=== PATIENT | female | born 1965 | race Caucasian/White ===

== ENCOUNTER → 2018-06-05 10:11 | Day surgery (SDC) | payer BC, OTHER ==
--- NOTE | 2018-06-05 03:39 | HP ---
CC: PCP, Jose Ayala MD * HISTORY AND PHYSICAL: DATE OF ADMISSION: 06/05/18 DATE OF SERVICE: 05/24/18 CHIEF COMPLAINT: Right shoulder. HISTORY OF PRESENT ILLNESS: Briefly, Kristy Montez follows up for right shoulder. She states she needs surgical treatment now. She has calcific tendonitis with impingement that is refractory to conservative management. She has failed 2 injections. She has had multiple bouts of physical therapy. The pain is about 5/10. She denies numbness, tingling, fevers, or chills. She also has left shoulder issues, but she would like her right shoulder addressed. PAST MEDICAL HISTORY: Recent diagnosis of diabetes. PAST SURGICAL HISTORY: Cholecystectomy in 2016, tubal , status post oophorectomy. MEDICATIONS: Include: 1. Multivitamin. 2. Metformin. 3. Ibuprofen. ALLERGIES: None. FAMILY HISTORY: Significant for diabetes, heart disease, high blood pressure. SOCIAL HISTORY: She lives with her spouse. 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 She is right hand dominant. She denies tobacco and drinks alcohol socially. REVIEW OF SYSTEMS: A 14-point review of systems reviewed with the patient, significant for the above complaint and recent diagnosis of diabetes, otherwise remainder of the systems is negative. PHYSICAL EXAMINATION GENERAL: She is in no acute distress. She is well developed and well nourished. She is alert and oriented x3. She has pleasant mood and normal affect. Good balance and coordination of the extremities. HEENT: EOMI. CHEST: Clear to auscultation. HEART: Regular rate and rhythm. ABDOMEN: Soft, nontender. EXTREMITIES: Examination of the right shoulder demonstrates skin is intact. There is no erythema or warmth. She is tender about the subacromial space. She has full range of motion with 5/5 strength. Positive impingement. She is sensate to light touch grossly distally with brisk cap refill. ASSESSMENT AND PLAN: She has right shoulder calcific tendonitis with impingement. At this point, we talked about options. She is not a candidate for any further injections, and I talked about right shoulder arthroscopy with decompression and debridement. We talked about the recover time. We talked about possible surgery to the biceps if it looks damaged, although I do not think based on her MRI. Risks and benefits were discussed at length to include , but not limited to, bleeding; infection; damage to the nerves, vessels, or surrounding structures; wound nonhealing; persistent pain; need for further surgery; scarring; stiffness; incomplete relief of symptoms; and risk of anesthesia. I will see her back 10 to 14 days postop. [id number]/[facility] #: [id number] MTDD
[~2018-06-05 10:11] MED LIST: Atropine 1MG/ML INJ* 1 ML VIAL ONE; Buffered Lidocaine 0.9% SYRIN* 5 ML/SYR SYRINGE INTRADERM ONE; Buffered Lidocaine 0.9% SYRIN* 5 ML/SYR SYRINGE ONE; Bupivacaine 0.5% PF 10 ML VIAL INJ ONE; Dexamethasone IV* 4 MG/ML 1 ML (4 MG) IV SLOW PU ONE; Dexamethasone IV* 4 MG/ML 1 ML (4 MG) ONE; DiMENhydriNATE IV* 50 MG/ML VIAL IV PUSH PRN; Famotidine IV* 10 MG/ML 2 ML (20 mg) IV ONE; Famotidine IV* 10 MG/ML 2 ML (20 mg) ONE; Glycopyrrolate IV* 0.2 MG/ML 1 ML VIAL ONE; HYDROmorphone INJ* 0.5 MG/0.5 ML SYRINGE IV PRN; Midazolam* 1 MG/ML 5 ML VIAL (5 MG) ONE; Naloxone* 0.4 MG/ML 1 ML VIAL IV PRN; Ondansetron INJ* 2 MG/ML VIAL IV PRN; Ondansetron INJ* 2 MG/ML VIAL ONE; Propofol* 10 MG/ML 20 ML BTL IV PUSH ONE; ROPIVACAINE 5 MG/ML 30 ML BTL (0.5%) ONE; ceFAZolin 2 GM PREMIX (*) 2 GM/50 ML BAG IVPB ONE; fentaNYL* 50 MCG/ML 2 ML VIAL (100 MCG VIAL) IV PRN; fentaNYL* 50 MCG/ML 2 ML VIAL (100 MCG VIAL) ONE; methylPREDNISolone ACETATE 80* 80 MG/ML 1 ML VIAL ONE; oxyCODONE/Acetamin 5/325 MG* TAB PO PRN
[2018-06-05 15:08] VITALS: BP 109/72
--- NOTE | 2018-06-06 10:58 | OP ---
DICTATION ENDED ABRUPTLY - PLEASE COMPLETE THIS DICTATION DATE OF OPERATION: 06/05/18 - [facility] DATE OF : 63 SURGEON: Chun Odonnell MD RETAIL AREA MANAGER: ROSEANN Aburto. An broker assistant was needed for this case to help with positioning, retraction, and was utilized throughout all portions of the case. PRE-OP DIAGNOSIS: Right shoulder calcific tendinitis. POST-OP DIAGNOSIS: Right shoulder calcific tendinitis. OPERATIVE PROCEDURE: Right shoulder limited glenohumeral debridement with subacromial decompression, acromioplasty, debridement of calcific lesion, and subacromial injection with 80 mg of Depo-Medrol. INDICATIONS: Kristy Montez is a 52-year-old female who has struggled with calcific tendinitis and impingement from a work-related injury for over a year. She has failed conservative management. She has had a maximum number of injections. She has elected to proceed with surgical treatment. Risks and benefits of surgery were discussed at length including, but not limited to, bleeding; infection; damage to nerves, vessels; surrounding structures; wound nonhealing; persistent pain; need for further surgery; scarring; stiffness; incomplete relief of symptoms; risk of anesthesia. COMPLICATIONS: None. ESTIMATED BLOOD LOSS: Minimal. IMPLANTS: None. DESCRIPTION OF PROCEDURE: The patient was greeted in the preoperative area by the attending surgeon. Correct extremity was marked and consent was confirmed. The patient was brought back to the operating suite, where she was placed in supine position on the operating table. She first underwent interscalene nerve block by anesthesiologist in the preanesthesia area. She then was brought back to the operating suite where she was placed in the supine position on the operating table. She then underwent general anesthesia and endotracheal intubation. INCOMPLETE DICTATION [id number]/[facility] #: [id number] [facility]
== END | disposition home or self-care (01) ==
LOC: OR 10:11
PROVIDERS: ATTEND Orthopaedic Surgery
DX: M75.31 Calcific tendinitis of right shoulder (principal); M75.41 Impingement syndrome of right shoulder; E11.9 Type 2 diabetes mellitus without complications; Z79.84 Long term (current) use of oral hypoglycemic drugs; E66.9 Obesity, unspecified; G47.33 Obstructive sleep apnea (adult) (pediatric); G89.18 Other acute postprocedural pain
CPT/HCPCS: J0461; J0690; J1040; J1100; J2250; J2405; J2704; J2795; J3010

== ENCOUNTER 2018-07-31 09:01 | Inpatient (IN) | payer BC, OTHER ==
[~2018-07-31 09:01] MED LIST changes: -Atropine 1MG/ML INJ* 1 ML VIAL ONE; -Buffered Lidocaine 0.9% SYRIN* 5 ML/SYR SYRINGE ONE; -Bupivacaine 0.5% PF 10 ML VIAL INJ ONE; -Dexamethasone IV* 4 MG/ML 1 ML (4 MG) IV SLOW PU ONE; -Dexamethasone IV* 4 MG/ML 1 ML (4 MG) ONE; -DiMENhydriNATE IV* 50 MG/ML VIAL IV PUSH PRN; -Famotidine IV* 10 MG/ML 2 ML (20 mg) IV ONE; -Famotidine IV* 10 MG/ML 2 ML (20 mg) ONE; -Glycopyrrolate IV* 0.2 MG/ML 1 ML VIAL ONE; -HYDROmorphone INJ* 0.5 MG/0.5 ML SYRINGE IV PRN; -Midazolam* 1 MG/ML 5 ML VIAL (5 MG) ONE; -Naloxone* 0.4 MG/ML 1 ML VIAL IV PRN; -Ondansetron INJ* 2 MG/ML VIAL IV PRN; -Ondansetron INJ* 2 MG/ML VIAL ONE; -Propofol* 10 MG/ML 20 ML BTL IV PUSH ONE; -ROPIVACAINE 5 MG/ML 30 ML BTL (0.5%) ONE; +Sodium Citrate/Citric Acid* 15 ML UDC PO ONE; -ceFAZolin 2 GM PREMIX (*) 2 GM/50 ML BAG IVPB ONE; -fentaNYL* 50 MCG/ML 2 ML VIAL (100 MCG VIAL) IV PRN; -fentaNYL* 50 MCG/ML 2 ML VIAL (100 MCG VIAL) ONE; -methylPREDNISolone ACETATE 80* 80 MG/ML 1 ML VIAL ONE; -oxyCODONE/Acetamin 5/325 MG* TAB PO PRN
--- OUTSIDE RECORDS SUMMARY | 2018-07-31 09:05 | XMS REPORT ---
:1965 External Reference #:[id number] Author Organization [employer] Address [address] [facility] [place] [address] Phone [phone] Care Team Providers Name Role Phone Jose Ayala M.D. Primary Care Physician Unavailable Payers Type Date Identification Numbers Payment Provider Subscriber Commercial Effective: Policy Number: [facility] Kristy Montez 2012 [id number] PayID: [id number] [id number] [place] [address] [id number] Workers Effective: Policy Number: [place] Kristy Compensation 2016 [id number] Occupational Med Tc Onset: 08/23/2016 Group Number: [id number] [address] Kumar [facility] 204 Group Name: [phone] [place] [address] PayID: UNITE Workers Compensation PayID: [id number] [employer] Kristy Montez Problems Date Description Provider Status Onset: 11/16/2016 Calcific tendinitis of right Chun Odonnell MD Active shoulder Onset: 11/16/2016 Calcific tendinitis of left Chun Odonnell MD Active shoulder Onset: Type 2 diabetes mellitus Active Onset: 05/21/2018 Obstructive sleep apnea Bita Stevens DNP, RN, Active syndrome 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/2018 Body mass index 30+ - obesity Bita Stevens DNP RN, Active 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 Family History Date Family Member(s) Problem(s) Comments General Diabetes Type II Grandmother General Heart issues Both Grandmothers General Breast Cancer Grandmother General Arthritis Grandmother Father Chronic Obstructive Smoker Pulmonary Disease (COPD) Mother Chronic Obstructive Pulmonary Disease (COPD) Mother Diabetes Type II Mother Arthritis Siblings 4 3 sisters, 1 brother Onset: (age 45 First Sister Scleroderma Years) Second Sister Peripheral Vascular Disease (PVD) Second Sister Smoker Social History Type Date Description Comments Marital Status Lives With Son Lives With Lives With 3 dogs 2 inside 1 outside Lives With 12 cats Indoor/ outdoor Occupation Currently 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 Cigarette Use Never Smoked Cigarettes ETOH Use Drinks Alcoholic Beverages Occasionally Smoking Secondhand smoke exposure As a child, in the house Recreational Drug Use Denies Drug Use Daily Caffeine Consumes on average 1 cup of Weekdays regular coffee per day Exercise Type/Frequency Exercises regularly Exercise Type/Frequency Walks daily Work related Exercise Type/Frequency Bikes sporadically Exercise Type/Frequency Swims sporadically Allergies, Adverse Reactions, Alerts Date Description Reaction Status Severity Comments 11/21/2016 NKDA active Medications Medication Date Status Form Strength Qnty SIG Indications Ordering Provider Oxycodone-Aceta 06/05/ Active Tablets 5-325mg 20tabs 1 tabs by Chun nielson 2017 mouth MD Belle every 4-6 hours as needed for pain Cephalexin 06/05/ Active Tablets 500mg 12tabs take 1 by Chun 2018 mouth MD Belle four times a day x 3 days Ibuprofen / Active 600mg one tab Unknown 0000 every six hours Metformin HCL / Active Tablets 500mg 1 by Unknown 0000 mouth daily Multivitamin / Active 1 by Unknown Adult With Iron 0000 mouth per day, some days Flector 05/11/ Hx Patches 1.3% 60unit topical Duran 2010 - s q12 hr Kade 12/07/ M.D. 2016 Percocet 05/11/ Hx Tablets 5-325mg 40tabs 1-2 po Duran 2010 - q4h-6 prn Kade 12/07/ pain M.DLiz 2016 Baclofen / Hx Tablets 10mg 1 tab 4 Unknown 0000 - times per day 2018 Vitamin D / Hx Capsules [id number] take one Unknown (Ergocalciferol 0000 - capsule ) 04/24/ by mouth 2017 once weekly for 8 weeks Mucinex / Hx Tablets ER 600mg twice a Unknown 0000 - 12HR day as 2017 Medications Administered in Office Medication Date Status Form Strength Qnty SIG Indications Ordering Provider Triamcinolone 07/26/ Administered Injection Zaneb (Kenalog) 2016 MD Belle Triamcinolone 01/18/ Administered Injection Zaneb (Kenalog) 2016 MD Belle Triamcinolone 11/21/ Administered Injection Zaneb (Kenalog) 2015 MD Belle Vital Signs Date Vital Result Comment 07/18/2018 Height 67 inches 5'7" Weight 239.00 lb Heart Rate 66 /min BP Systolic 122 mmHg BP Diastolic 80 mmHg Respiratory Rate 18 /min Pain Level 3 BMI (Body Mass Index) 37.4 kg/m2 06/18/2018 Height 67 inches 5'7" Heart Rate 68 /min BP Systolic 102 mmHg BP Diastolic 66 mmHg Respiratory Rate 20 /min Body Temperature 97.7 F Pain Level 2 05/24/2018 Height 67 inches 5'7" Weight 239.00 lb BP Systolic 132 mmHg BP Diastolic 81 mmHg Respiratory Rate 19 /min Pain Level 3 BMI (Body Mass Index) 37.4 kg/m2 05/21/2018 Height 67 inches 5'7" Weight 239.50 lb Heart Rate 70 /min BP Systolic Sitting 108 mmHg Rue large cuff BP Diastolic Sitting 72 mmHg Rue large cuff Respiratory Rate 18 /min O2 % BldC Oximetry 97 % On Ra BMI (Body Mass Index) 37.5 kg/m2 05/02/2018 Height 67 inches 5'7" Weight 232.00 lb BP Systolic 124 mmHg BP Diastolic 64 mmHg Respiratory Rate 20 /min Pain Level 3 BMI (Body Mass Index) 36.3 kg/m2 04/25/2018 Height 67 inches 5'7" Weight 250.00 lb Heart Rate 68 /min BP Systolic Sitting 116 mmHg Lue large cuff BP Diastolic Sitting 70 mmHg Lue large cuff Respiratory Rate 16 /min O2 % BldC Oximetry 98 % On Ra BMI (Body Mass Index) 39.2 kg/m2 Neck Circumference in inches 19 03/19/2018 Heart Rate 84 /min BP Systolic 120 mmHg BP Diastolic 78 mmHg Respiratory Rate 16 /min Body Temperature 96.4 F Pain Level 5 02/26/2018 Height 67 inches 5'7" Weight 267.00 lb Heart Rate 72 /min BP Systolic Sitting 104 mmHg BP Diastolic Sitting 70 mmHg Respiratory Rate 16 /min Pain Level 4 BMI (Body Mass Index) 41.8 kg/m2 01/01/2018 Height 67 inches 5'7" Weight 267.00 lb BP Systolic 122 mmHg BP Diastolic 78 mmHg Respiratory Rate 20 /min Pain Level 5 BMI (Body Mass Index) 41.8 kg/m2 11/27/2017 Height 67 inches 5'7" Weight 267.00 lb BP Systolic 128 mmHg BP Diastolic 68 mmHg Respiratory Rate 18 /min Pain Level 3 BMI (Body Mass Index) 41.8 kg/m2 10/09/2017 Height 67 inches 5'7" Weight 267.00 lb BP Systolic 128 mmHg BP Diastolic 74 mmHg Respiratory Rate 18 /min Pain Level 4 BMI (Body Mass Index) 41.8 kg/m2 09/06/2017 Height 67 inches 5'7" Weight 267.00 lb Heart Rate 85 /min BP Systolic 128 mmHg BP Diastolic 80 mmHg BMI (Body Mass Index) 41.8 kg/m2 07/26/2017 Height 67 inches 5'7" Weight 269.00 lb Heart Rate 83 /min Respiratory Rate 15 /min Pain Level 3 BMI (Body Mass Index) 42.1 kg/m2 07/05/2017 Height 67 inches 5'7" Weight 265.00 lb Heart Rate 84 /min BP Systolic 127 mmHg BP Diastolic 78 mmHg Pain Level 3 BMI (Body Mass Index) 41.5 kg/m2 05/22/2017 Height 65.75 inches 5'5.75" Weight 265.00 lb BP Systolic 116 mmHg BP Diastolic 72 mmHg Respiratory Rate 19 /min Body Temperature 97.0 F Pain Level 3 BMI (Body Mass Index) 43.1 kg/m2 04/27/2017 Height 65.75 inches 5'5.75" Weight 265.00 lb BP Systolic 127 mmHg BP Diastolic 73 mmHg Respiratory Rate 16 /min Pain Level 2 BMI (Body Mass Index) 43.1 kg/m2 03/15/2017 Height 65.75 inches 5'5.75" Weight 255.00 lb Heart Rate 80 /min BP Systolic 117 mmHg BP Diastolic 70 mmHg Respiratory Rate 25 /min Pain Level 2 BMI (Body Mass Index) 41.5 kg/m2 02/15/2017 Height 65.75 inches 5'5.75" Weight 255.00 lb Heart Rate 72 /min BP Systolic 130 mmHg BP Diastolic 78 mmHg Respiratory Rate 16 /min Body Temperature 97.1 F Pain Level 4 BMI (Body Mass Index) 41.5 kg/m2 01/18/2017 Height 65.75 inches 5'5.75" Weight 255.00 lb Heart Rate 70 /min Respiratory Rate 16 /min Pain Level 3 BMI (Body Mass Index) 41.5 kg/m2 01/04/2017 Height 65.75 inches 5'5.75" Weight 255.00 lb Heart Rate 88 /min BP Systolic Sitting 122 mmHg BP Diastolic Sitting 70 mmHg Respiratory Rate 16 /min Pain Level 3 BMI (Body Mass Index) 41.5 kg/m2 12/22/2016 Height 65.75 inches 5'5.75" Weight 255.00 lb Respiratory Rate 18 /min Pain Level 2 BMI (Body Mass Index) 41.5 kg/m2 12/08/2016 Height 65.75 inches 5'5.75" Weight 255.00 lb Respiratory Rate 16 /min Pain Level 0 BMI (Body Mass Index) 41.5 kg/m2 11/21/2016 Height 65.75 inches 5'5.75" Weight 255.00 lb Respiratory Rate 16 /min Pain Level 5 BMI (Body Mass Index) 41.5 kg/m2 11/16/2016 Height 65.75 inches 5'5.75" Weight 255.00 lb Heart Rate 82 /min BP Systolic Sitting 115 mmHg BP Diastolic Sitting 59 mmHg Respiratory Rate 16 /min BMI (Body Mass Index) 41.5 kg/m2 05/11/2011 Height 67 inches 5'7" Weight 240.00 lb Heart Rate 75 /min BP Systolic 115 mmHg BP Diastolic 73 mmHg BMI (Body Mass Index) 37.6 kg/m2 Results Test Date Test Result H/L Range Note CBC No Diff 07/15/2018 White Blood Count 9.3 10^3/uL 3.5-10.8 Red Blood Count 4.18 10^6/uL 4.00-5.40 Hemoglobin 12.0 g/dL 12.0-16.0 Hematocrit 36 % 35-47 Mean Corpuscular Volume 86 fL 80-97 Mean Corpuscular Hemoglobin 29 pg 27-31 Mean Corpuscular HGB Conc 34 g/dL 31-36 Red Cell Distribution Width 16 % High 10.5-15 Platelet Count 271 10^3/uL 150-450 Mean Platelet Volume 8.4 um3 7.4-10.4 Basic Metabolic Panel 07/15/2018 Sodium 140 mmol/L 135-145 Potassium 4.3 mmol/L 3.5-5.0 Chloride 105 mmol/L 101-111 Co2 Carbon Dioxide 30 mmol/L 22-32 Anion Gap 5 mmol/L 2-11 Glucose 93 mg/dL 70-100 Blood Urea Nitrogen 17 mg/dL 6-24 Creatinine 0.53 mg/dL 0.51-0.95 BUN/Creatinine Ratio 32.1 High 8-20 Calcium 9.1 mg/dL 8.6-10.3 Egfr Non- 120.7 >60 Egfr 146.0 >60 1 Laboratory test finding 07/15/2018 Hemoglobin A1c (Glyco HGB) 5.8 % High 4.0-5.6 2 Laboratory test finding 06/05/2018 Point of Care Glucose 92 mg/dL 70-100 3 1 Because ethnic data is not always readily available, this report includes an eGFR for both -Americans and non- Americans. The National Kidney Disease Education Program (NKDEP) does not endorse the use of the MDRD equation for patients that are not between the ages of 18 and 70, are , have extremes of body size, muscle mass, or nutritional status, or are non- or non-. According to the National Kidney Foundation, irrespective of diagnosis, the stage of the disease is based on the level of kidney function: Stage Description GFR(mL/min/1.73 m(2)) 1 Kidney damage with normal or decreased GFR 90 2 Kidney damage with mild decrease in GFR 60-89 3 Moderate decrease in GFR 30-59 4 Severe decrease in GFR 15-29 5 Kidney failure <15 (or dialysis) 2 Therapeutic target for the treatment of diabetes mellitus patients is <7% HBA1C, and in selective patients <6.0%. Please refer to [place] Diabetes Association diabetic care guidelines for further information. 3 Automobile Contract Clerk: [id number] Procedures Date CPT Code Description Status 06/05/2018 28151 Arthroscopy,Shoulder Decompression Of Subacromial Space Completed W/Acromio 06/05/2018 89141 Arthroscopy,Shoulder Decompression Of Subacromial Space Completed W/Acromio 06/05/2018 76362 Arthroscopy Shoulder Debridement Extensive Completed 06/05/2018 60513 Arthroscopy Shoulder Debridement Extensive Completed 05/11/2018 84869 Sleep Study Unattended,HRT Rate,Oxygen Sat,Resp Completed Effort/Airflow 04/04/2018 Mammogram Completed 07/26/2017 Inject/Drain Joint/Bursa Major W/O US Completed 01/18/2017 Inject/Drain Joint/Bursa Major W/O US Completed 01/18/2017 Inject/Drain Joint/Bursa Major W/O US Completed 11/21/2016 Inject/Drain Joint/Bursa Major W/O US Completed 11/21/2016 Inject/Drain Joint/Bursa Major W/O US Completed 08/02/2016 05912 Laparoscopy Cholecystectomy Completed 09/19/2013 70075 Stress Test Completed Encounters Type Date Location Provider CPT E/M Dx Office Visit 07/18/2018 8:45a [facility] [place] [address] M75.31 C.M.A. Office Visit 05/24/2018 8:45a [facility] [place] [address] M75.31 C.M.A. M75.31 M75.32 M75.41 Office Visit 05/21/2018 3:00p [facility] Bita Stevens 82364 G47.33 Services Of [facility] JORDAN RN, GAS APPLIANCE REPAIRER- E66.01 Z68.37 Office Visit 05/02/2018 2:00p [facility] [place] [address] M75.31 C.M.A. M75.32 Office Visit 04/25/2018 2:00p [facility] [place] [address] R06.83 Services Of [facility] E66.01 Z68.39 Office Visit 03/19/2018 1:45p [facility] [place] [address] M75.31 C.M.A. Office Visit 02/26/2018 2:00p [facility] [place] [address] M75.31 C.M.A. M75.32 Office Visit 01/01/2018 2:45p [facility] [place] [address] M75.31 C.M.A. M75.31 M75.32 M75.32 Office Visit 11/27/2017 9:30a [facility] [place] [address] M75.31 C.M.A. M75.32 Office Visit 10/09/2017 2:45p [facility] [place] [address] M75.31 C.M.A. M75.32 Office Visit 09/06/2017 1:15p [facility] [place] [address] M75.31 C.M.A. M75.32 Office Visit 07/26/2017 1:30p [facility] [place] [address] M75.31 C.M.A. M75.32 Office Visit 07/05/2017 2:15p [facility] [place] [address] M75.31 C.M.A. M75.32 Office Visit 05/22/2017 2:45p [facility] [place] [address] M75.31 C.M.A. M75.32 Office Visit 04/27/2017 8:00a [facility] [place] [address] M75.31 C.M.A. M75.32 Office Visit 03/15/2017 8:15a [facility] [place] [address] M75.31 C.M.A. M75.32 Office Visit 02/15/2017 9:30a [facility] [place] [address] M75.31 C.M.A. M75.32 Office Visit 01/04/2017 9:30a [facility] [place] [address] M75.31 C.M.A. M75.32 Office Visit 12/22/2016 9:15a [facility] [place] [address] M75.31 C.M.A. M75.32 Office Visit 12/08/2016 8:45a [facility] [place] [address] M75.31 C.M.A. M75.32 Office Visit 11/16/2016 11:30a [facility] [place] [address] M75.31 C.M.A. M75.32 Office Visit 02/01/2014 10:27a [facility], Cindy Nascimentoima, [address] 786.51 Hospitalists [facility] [phone] Office Visit 01/31/2014 10:26a [facility], Cindy Montenegro, 24545 786.51 Hospitalists [facility]ley [phone] Plan of Care Future Appointment(s):08/13/2018 10:45 am - Chun Odonnell MD at [facility]..08/14/2018 2:30 pm - Bita Stevens DNP, RN, 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 at [facility]07/18/2018 - Chun Odonnell, MDM75.31 Calcific tendinitis of right shoulderFollow up:Follow up: 08/13
[2018-07-31] MEDS ORDERED: Heparin VIAL(*) 5000 UNITS/ML VIAL (FIVE THOUSAND) ONE (09:09)
[2018-07-31] MEDS ORDERED: ceFAZolin 2 GM PREMIX in ORs 2 GM/50 ML BAG IVPB ONE (09:09)
[2018-07-31] MEDS ORDERED: Sodium Citrate/Citric Acid* 15 ML UDC ONE (09:09)
[2018-07-31] MEDS ORDERED: Bupivacaine 0.25% W/EPI* 10 ML SDV ONE (10:54)
[2018-07-31] MEDS ORDERED: Propofol* 10 MG/ML 20 ML BTL IV PUSH ONE (11:14)
[2018-07-31] MEDS ORDERED: Lidocaine 2% PF * 5 ML VIAL ONE (11:14)
[2018-07-31] MEDS ORDERED: Rocuronium* 10 MG/ML VIAL ONE (11:18)
[2018-07-31] MEDS ORDERED: fentaNYL* 50 MCG/ML 2 ML VIAL (100 MCG VIAL) ONE ×2 (11:18→13:33)
[2018-07-31] MEDS ORDERED: DiMENhydriNATE IV* 50 MG/ML VIAL IV PUSH PRN (11:52)
[2018-07-31] MEDS ORDERED: Naloxone* 0.4 MG/ML 1 ML VIAL IV PRN (11:52)
[2018-07-31] MEDS ORDERED: Acetaminophen IV 1GM/100ML * 1,000 MG/100 ML VIAL IVPB ONE (11:52)
[2018-07-31] MEDS ORDERED: Cisatracurium* 2 MG/ML MDV 5 ML ONE (12:23)
--- NOTE | 2018-07-31 12:52 | BRIEFOPN ---
Brief Operative Note - Surgery Procedures: Brief Operative Note Preoperative dx: Morbid obesity. Postoperative dx: Same. Procedure: Laparoscopic sleeve gastrectomy. Anesthesia: GET. Surgeon: MD Cata. Assist: ROSEANN Tillman and FIDE Albert. EBL: Less than 50 ml. Fluids: 1000 LR. Specimen: Portion of the stomach. Findings: Dictated.
[2018-07-31] MEDS ORDERED: Acetaminophen ADULT LIQ* 650 MG/20.3 ML UDC PO PRN (12:54)
[2018-07-31] MEDS ORDERED: diPHENhydraMINE IV* 50 MG/ML 1 ml VIAL (BENADRYL) SLOW PUSH PRN (12:54)
[2018-07-31] MEDS ORDERED: HYDROmorphone INJ1* 1 MG/ML SYRINGE IV PRN (13:01)
[2018-07-31] MEDS ORDERED: Dextrose 50% Syringe 50 ML* 25 GM/50 ML SYRINGE IV PUSH PRN (13:03)
[2018-07-31] MEDS ORDERED: DiMENhydriNATE IV* 50 MG/ML VIAL ONE (13:33)
[2018-07-31] MEDS: fentaNYL* 50 MCG/ML 2 ML VIAL (100 MCG VIAL) IV PRN ×4 (13:35→14:09)
[2018-07-31] MEDS ORDERED: Scopolamine 1.5 mg* PATCH ONE (14:18)
[2018-07-31] MEDS: Heparin VIAL(*) 5000 UNITS/ML VIAL (FIVE THOUSAND) SUBCUT SCH ×2 (14:53→22:40)
[2018-07-31] MEDS: Ondansetron INJ* 2 MG/ML VIAL IV PRN ×2 (14:53→22:50)
[2018-07-31] MEDS: Ketorolac INJ* 30 MG/ML 1 ML VIAL IV PRN ×2 (15:04→22:54)
[2018-07-31] MEDS: HYDROmorphone INJ1* 1 MG/ML SYRINGE IV PRN ×2 (16:08→20:21)
[2018-07-31] MEDS: Insulin LISPRO* 1 UNITS UNIT SUBCUT SCH (17:56)
[2018-07-31] MEDS: Famotidine IV* 10 MG/ML 2 ML (20 mg) IV SLOW PU SCH (20:20)
[2018-08-01] MEDS: Insulin LISPRO* 1 UNITS UNIT SUBCUT SCH ×4 (00:02→18:00)
[2018-08-01] MEDS: HYDROmorphone INJ1* 1 MG/ML SYRINGE IV PRN ×2 (03:19→08:57)
[2018-08-01] MEDS: Ketorolac INJ* 30 MG/ML 1 ML VIAL IV PRN ×2 (06:15→14:59)
[2018-08-01] MEDS: Heparin VIAL(*) 5000 UNITS/ML VIAL (FIVE THOUSAND) SUBCUT SCH ×3 (06:15→22:35)
[2018-08-01] MEDS: Famotidine IV* 10 MG/ML 2 ML (20 mg) IV SLOW PU SCH ×2 (07:05→20:44)
--- NOTE | 2018-08-01 09:55 | RAD ---
CPT II Codes: G9500 INDICATION: Status post sleeve gastrectomy. Approximately 1 minute and 10 seconds of fluoroscopy time was used. The esophagus appears grossly unremarkable. No evidence of extraluminal contrast is noted in the stomach. There is free flow of contrast into the small intestine. IMPRESSION: Postoperative changes with no evidence of obstruction or extraluminal contrast.
--- NOTE | 2018-08-01 10:09 | OP ---
CC: Dr. Jose Ayala; Dr. Chun Odonnell; [facility] * DATE OF OPERATION: 07/31/18 - ROOM #351 DATE OF : 63 SURGEON: Bora Ivy MD AGRICULTURAL LENDER: ROSAENN Parra ANESTHESIOLOGIST: Dr. Campbell. ANESTHESIA: General anesthesia. PRE-OP DIAGNOSIS: Clinically severe obesity. POST-OP DIAGNOSIS: Clinically severe obesity. OPERATIVE PROCEDURE: Laparoscopic sleeve gastrectomy. ESTIMATED BLOOD LOSS: Less than 50 cc. FLUIDS: 1000 cc of lactated Ringer's given. SPECIMEN: Portion of stomach. DESCRIPTION OF PROCEDURE: The patient was identified in the preoperative area. Case was discussed with her and her family again. Consent was signed after the patient was marked. The patient was then brought to the operating room, placed on the operating table in supine position. Preoperative antibiotics were given. Sequential devices were placed on the bilateral lower extremities. General anesthesia was induced. The patient's abdomen was prepped and draped in standard surgical fashion. Time-out was performed. Folds of the umbilicus were elevated anteriorly and a Veress needle was inserted into the abdominal cavity, which was then allowed to insufflate to a pressure of 15 mmHg. The patient tolerated the insufflation well. [place] between the xiphoid and the umbilicus, a 12 mm trocar was inserted. Laparoscope was inserted through this and there was no evidence of injury from the trocar insertion or from the Veress needle, which was then removed. Veress needle was in a drape of omentum that was in an umbilical hernia, but there was no bowel contents in the area. Additional trocars were then placed in the following positions: A 12 mm in the right upper quadrant and two 5 mm in the left upper quadrant. Table was then re-positioned to the reverse Trendelenburg. A Norman retractor was inserted through the subxiphoid incision and the liver was retracted anterior into the right exposing the gastroesophageal fat pad. This fat pad was grasped and retracted towards the right lower quadrant. Both blunt and sharp dissection was carried out to expose the angle of His. Next, a retrogastric tunnel was made along the greater curvature just 6 cm proximal to the pylorus. The greater vasculature was taken with the LigaSure device right up to the angle of His where we had previously dissected. Posterior attachments were similarly taken until the stomach could be rotated along its axis. Next, the sleeve stomach was created using a 60-mm Fooducate CHRISS stapling devices firing it in the appropriate fashion over the 40-Upper Sorbian bougie. We used 4 staplers at all and the bougie was then removed. Staple line appeared intact without bleeding. The transected portion of the stomach was placed in the endoscopic retrieval bag and brought out through the right upper quadrant port site. Then the retractor was removed. Review of the abdomen showed no evidence of bleeding. No enteric content. The fascia of the right upper quadrant port site was then reapproximated with 0 Polysorb sutures and Endo Close device and the abdomen was allowed to collapse. Trocars were removed under direct vision and all five skin incisions were reapproximated with 4-0 Monocryl subcuticular sutures followed by sterile dressing. The patient was woken up and transferred to the PACU in stable condition. [id number]/[facility] #: [id number] LORENZO
[2018-08-01] MEDS: Ondansetron INJ* 2 MG/ML VIAL IV PRN (11:36)
[2018-08-01] MEDS: D5W 1/2 NS KCl 20 Meq 1000 ML* 1,000 ML IV SCH ×2 (12:59→21:42)
[2018-08-01] MEDS: HYDROcodone/ACET. 7.5/325 LIQ* 15 ML UDC PO PRN ×2 (13:03→22:34)
--- NOTE | 2018-08-01 16:53 | PN ---
Progress Note - Progress Note Date of Service: 08/01/18 SOAP: Subjective: Patient seen and examined. feeling better today. No vomiting. No flatus. Out of bed and ambulatory Objective: Temp Pulse Resp BP Pulse Ox 99.7 F 52 16 110/51 95 08/01/18 15:56 08/01/18 15:56 08/01/18 15:56 08/01/18 15:56 08/01/18 16:00 Intake & Output 08/01/18 08/01/18 08/01/18 06:59 14:59 22:59 Intake Total 0 180 Output Total 1100 650 250 Balance -1100 -470 -250 alert and oriented 3 in no apparent distress lungs clear abdomen: Soft, nondistended, incisional tenderness. dressings clean dry and intact extremities within normal limits upper GI reviewed Assessment: postoperative day 1 sleeve gastrectomy Plan: advance diet. Pain control. Plan discharge tomorrow.
[2018-08-02] MEDS: Heparin VIAL(*) 5000 UNITS/ML VIAL (FIVE THOUSAND) SUBCUT SCH (05:53)
[2018-08-02] MEDS: Ketorolac INJ* 30 MG/ML 1 ML VIAL IV PRN (05:54)
[2018-08-02] MEDS: D5W 1/2 NS KCl 20 Meq 1000 ML* 1,000 ML IV SCH (06:04)
[2018-08-02] MEDS: Ondansetron INJ* 2 MG/ML VIAL IV PRN (06:04)
[2018-08-02] MEDS: Insulin LISPRO* 1 UNITS UNIT SUBCUT SCH ×2 (06:08)
[2018-08-02 08:10] VITALS: BP 108/53
[2018-08-02] MEDS: Famotidine IV* 10 MG/ML 2 ML (20 mg) IV SLOW PU SCH (09:12)
--- NOTE | 2018-08-02 10:21 | DS ---
DISCHARGE SUMMARY: DATE OF ADMISSION: DATE OF DISCHARGE: 08/02/18 HOSPITAL COURSE: Ms. Montez is a 52-year-old female worked up as an outpatient with clinically severe obesity, type 2 diabetes who presented to the hospital on same day of surgery and underwent a laparoscopic sleeve gastrectomy. Please see operative report for details. The patient's postoperative course is uneventful. She was transferred to the PACU and onto the short stay surgical unit. On postoperative day 1, the patient underwent upper GI study, which was within normal limits, and the patient was started on a bariatric clear diet. The patient had some intermittent nausea through postoperative day 1, was held overnight and on postoperative day 2, the patient was ready for discharge and discharged home for planned followup at [facility] on Sunday of next week. PHYSICAL EXAM: Performed on day of discharge. The patient was afebrile. T- max 100, T-current 97.6. Vital signs stable. Alert and oriented x3, in no apparent distress. Head, Ears, Eyes, Nose, And Throat: Normocephalic, atraumatic. Sclerae anicteric. Mucous membranes are moist. Neck: No lymphadenopathy. Abdomen: Soft, nondistended, tenderness mostly at the right upper quadrant. Dressings removed. Steri-Strips in place. Mild erythema at the right upper quadrant port site, but not at the others. Small areas of ecchymosis from heparin shots. Extremities: Within normal limits with no calf tenderness. PLAN: Discharged home. Follow strictly to the bariatric diet. The patient is aware of this as this has been described to her. She will come to our offices on Sunday of next day. She is aware of her appointment. I have also given her my cell phone number to contact me if there are any questions or concerns. [id number]/[facility] #: [id number] MTDD
== END 2018-08-02 11:25 | disposition home or self-care (01) | DRG 403 ==
LOC: AA 09:01 → SSU 12:54
PROVIDERS: ADMIT Surgery; ATTEND Surgery
PROC: 0DB64Z3 Excision of Stomach, Percutaneous Endoscopic Approach, Vertical (ICD-10-PCS; principal; 2018-07-31 10:15)
DX: E66.01 Morbid (severe) obesity due to excess calories (principal); E11.9 Type 2 diabetes mellitus without complications; R11.0 Nausea; G47.33 Obstructive sleep apnea (adult) (pediatric); K42.9 Umbilical hernia without obstruction or gangrene; Z78.0 Asymptomatic menopausal state; Z90.49 Acquired absence of other specified parts of digestive tract; Z98.51 Tubal ligation status; Z90.721 Acquired absence of ovaries, unilateral; Z80.3 Family history of malignant neoplasm of breast; Z82.49 Family history of ischemic heart disease and other diseases of the circulatory system; Z83.3 Family history of diabetes mellitus; Z83.49 Family history of other endocrine, nutritional and metabolic diseases; Z72.89 Other problems related to lifestyle; Z68.36 Body mass index [BMI] 36.0-36.9, adult
CPT/HCPCS: 74246; 88307; A9270-GY; J0690; J1170; J1240; J1644; J1885; J2405; J2704; J3010

== ENCOUNTER 2019-10-05 08:10 | Emergency (ER) | payer BC ==
--- NOTE | 2019-10-05 08:42 | ED ---
Throat Pain/Nasal Congestion - HPI Summary HPI Summary: Patient is a 53-year-old female who presents emergency department for worsening cough and sinus congestion > 1 week. No significant past medical history. Associated symptoms of chills and fatigue. Patient denies chest pain, shortness of breath, abdominal pain, vomiting, diarrhea, urinary symptoms. Symptoms are mild in severity. No current modifying factors. - History of Current Complaint Chief Complaint: EDThroatPain Time Seen by Provider: 10/05/19 08:19 Hx Obtained From: Patient - Allergies/Home Medications Allergies/Adverse Reactions: Allergies Allergy/AdvReac Type Severity Reaction Status Date / Time DUST MITES Allergy Intermediate Congestion Uncoded 05/13/19 12:33 PMH/Surg Hx/FS Hx/Imm Hx Previously Healthy: Yes Endocrine/Hematology History: Reports: Hx Diabetes - NO MEDS SINCE WEIGHT LOSS Cardiovascular History: Denies: Hx Hypertension, Hx Pacemaker/ICD, Other Cardiovascular Problems/ Disorders Respiratory History: Reports: Hx Sleep Apnea - CPAP, newly diagnosed Denies: Other Respiratory Problems/Disorders GI History: Reports: Hx Gastroesophageal Reflux Disease, Other GI Disorders - hx of gallbladder- removed 2015 History: Denies: Hx Renal Disease, Other Problems/Disorders Musculoskeletal History: Reports: Hx Tendonitis - HX OF right thumb, left wrist , Other Musculoskeletal History - Calcifications in both shoulders- right operated on 06/12 Sensory History: Reports: Hx Contacts or Glasses - Glasses Denies: Hx Hearing Aid Opthamlomology History: Reports: Hx Contacts or Glasses - Glasses Neurological History: Reports: Hx Headaches Denies: Other Neuro Impairments/Disorders Psychiatric History: Denies: Hx Panic Disorder, Other Psychiatric Issues/Disorders - Cancer History Hx Chemotherapy: No Hx Radiation Therapy: No - Surgical History Surgery Procedure, Year, and Place: 1998 REMOVAL OF FALLOPIAN TUBE AND PART OF OVARY FOR TUBAL , [facility]. 08/02/2016 GALLBLADDER, [facility]. Laparoscopic exploratory 1994 scaring on ovaries removed. RIGHT SHOULDER-CLEANED 06/05/18. GASTRIC SLEEVE 07/2018 Hx Anesthesia Reactions: No - Immunization History Date of Influenza Vaccine: 07/2019 Infectious Disease History: No Infectious Disease History: Denies: History Other Infectious Disease, Traveled Outside the [place] in Last 30 Days - Family History Known Family History: Positive: Cardiac Disease, Hypertension, Diabetes, Non- Contributory - Social History Occupation: Employed Full-time Lives: With Family Alcohol Use: None Alcohol Amount: 1/week Substance Use Type: Reports: None Smoking Status (MU): Never Smoked Tobacco Review of Systems Positive: Chills Positive: Sore Throat, Nasal Discharge Cardiovascular: Negative Positive: Cough. Negative: Shortness Of Breath Gastrointestinal: Negative Negative: Abdominal Pain, Vomiting, Diarrhea Genitourinary: Negative Skin: Negative Neurological: Negative All Other Systems Reviewed And Are Negative: Yes Physical Exam Triage Information Reviewed: Yes Vital Signs On Initial Exam: Initial Vitals Temp Pulse Resp BP Pulse Ox 98.5 F 75 16 123/70 98 10/05/19 08:14 10/05/19 08:14 10/05/19 08:14 10/05/19 08:14 10/05/19 08:14 Vital Signs Reviewed: Yes Appearance: Positive: Well-Appearing - Pt. sitting up in bed in NAD> Skin: Positive: Warm, Dry Head/Face: Positive: Normal Head/Face Inspection Eyes: Positive: Normal, EOMI, MIKE, Conjunctiva Clear ENT: Positive: Pharyngeal erythema, TMs normal. Negative: Tonsillar swelling, Tonsillar exudate Neck: Positive: Supple, Nontender, No Lymphadenopathy. Negative: Nuchal Rigidity Respiratory/Lung Sounds: Positive: Other - Diminished breath sounds in bilateral bases. Cardiovascular: Positive: Normal, RRR Abdomen Description: Positive: Nontender, Soft Neurological: Positive: Normal, CN Intact II-III Psychiatric: Positive: Affect/Mood Appropriate Procedures - Sedation Patient Received Moderate/Deep Sedation with Procedure: No Diagnostics - Vital Signs Vital Signs Temp Pulse Resp BP Pulse Ox 10/05/19 08:14 98.5 F 75 16 123/70 98 - Laboratory Lab Statement: Any lab studies that have been ordered have been reviewed, and results considered in the medical decision making process. EENT Course/Dx - Course Course Of Treatment: Pt. with worsening cough and sinus pressure. Afebrile with stable VS. CXR negative for infiltrate per radioloy. Given worsening sinus pressure will tx with augmentin and flonase. Advised tylenol for pain as directed. Increase fluids and rest. Will f.u with pcp and return to er if sxs change or wrse. Pt. understands and agrees with plan. - Differential Diagnoses Differential Diagnoses: Influenza, Sinusitis, URI/Bronchitis - Diagnoses Provider Diagnoses: Sinusitis Discharge ED - Sign-Out/Discharge Documenting (check all that apply): Patient Departure - Discharge Plan Condition: Good Disposition: HOME Prescriptions: Amoxicillin/Clavulanate TAB* [Augmentin TAB 875*] 875 mg PO BID #20 tab Fluticasone NASAL SPRAY 50MCG* [Flonase NASAL SPRAY 50MCG*] 2 spray BOTH NARES DAILY #1 btl Patient Education Materials: Sinusitis (ED) Referrals: Jose Ayala MD [Primary Care Provider] - Additional Instructions: Follow up with PCP if symptoms persist Medication as directed Can continue tylenol for pain as directed Increase fluids and rest Return to ER if symptoms change or worsen - Billing Disposition and Condition Condition: GOOD Disposition: Home - Attestation Statements Provider Attestation: I was available for consultation for this patient. I did not evaluate the patient, or participate in any medical decision making or disposition decisions unless I am specifically named in the chart as having consulted on the patient. If I have consulted on the patient, please see my own ED note on the patient encounter. Joyce Yusuf MD
[2019-10-05 09:20] VITALS: BP 103/55
--- OUTSIDE RECORDS SUMMARY | 2019-10-05 09:21 | XMS REPORT | Continuity of Care Document ---
:1965 External Reference #:[id number] Author Name Chun Odonnell MD (transmitted by agent of provider Litzy Chadwick) Address [address] [place] [address] Care Team Providers Name Role Phone Jose Ayala M.D. - Family Medicine Care Team Information Store Warehouse Associate [phone] Problems Active Problems Provider Date Calcific tendinitis of right Chun Odonnell MD Onset: 11/16/2016 shoulder Calcific tendinitis of left Chun Odonnell MD Onset: 11/16/2016 shoulder Type 2 diabetes mellitus Onset: Obstructive sleep apnea syndrome Bita Stevens DNP, RN, [employer]YWALL [employer]OR- Onset: Strain of rotator cuff capsule Chun Odonnell MD Onset: 05/27/2019 Social History Type Date Description Comments Sex Unknown Tobacco Use Start: Unknown Never Smoked Cigarettes Smoking Status Reviewed: 08/14/19 Never Smoked Cigarettes ETOH Use Drinks Alcoholic Beverages Occasionally Tobacco Use Start: Unknown Secondhand smoke As a child, in the exposure house Recreational Drug Use Denies Drug Use Exercise Type/Frequency Exercises regularly Exercise Type/Frequency Walks daily Work related Exercise Type/Frequency Bikes sporadically Exercise Type/Frequency Swims sporadically Allergies, Adverse Reactions, Alerts Description No Known Drug Allergies Medications Active Medications SIG Qnty Indications Ordering Provider Date Tylenol 1000MG every 6 Unknown hrs as needed. Not to exceed 4000MG daily Optimultivitamin( 1 tab by mouth Unknown Baritric Vitamin) every day Medications Administered in Office Medication SIG Qnty Indications Ordering Provider Date Triamcinolone (Kenalog) Chun Odonnell MD 05/27/2019 Injection Triamcinolone (Kenalog) Chun Odonnell MD 07/26/2017 Injection Triamcinolone (Kenalog) Chun Odonnell MD 01/18/2017 Injection Triamcinolone (Kenalog) Chun Odonnell MD 11/21/2016 Injection Immunizations Description No Information Available Vital Signs Date Vital Result Comment 08/14/2019 9:51am Height 67 inches 5'7" Weight 143.00 lb Respiratory Rate 16 /min Body Temperature 97.3 F Pain Level 4 BMI (Body Mass Index) 22.4 kg/m2 07/15/2019 2:48pm Height 67 inches 5'7" Weight 143.00 lb BP Systolic 126 mmHg BP Diastolic 68 mmHg Respiratory Rate 18 /min Pain Level 3 BMI (Body Mass Index) 22.4 kg/m2 Results Test Date Facility Test Result H/L Range Note CBC Auto 05/21/2019 [facility] White Blood 5.7 10^3/uL Normal 3.5-10.[address] [place] [address] [phone] Red Blood Count 4.07 10^6/uL Normal 3.70-4.87 Hemoglobin 12.5 g/dL Normal 12.0-16.0 Hematocrit 37 % Normal 35-47 Mean Corpuscular Volume 91 fL Normal 80-97 Mean Corpuscular Hemoglobin 31 pg Normal 27-31 Mean Corpuscular HGB Conc 34 g/dL Normal 31-36 Red Cell Distribution Width 14 % Normal 10-15 Platelet Count 200 10^3/uL Normal 150-450 Mean Platelet Volume 8.6 fL Normal 7.4-10.4 Abs Neutrophils 2.1 10^3/uL Normal 1.5-7.7 Abs Lymphocytes 2.5 10^3/uL Normal 1.0-4.8 Abs Monocytes 0.5 10^3/uL Normal 0-0.8 Abs Eosinophils 0.5 10^3/uL Normal 0-0.6 Abs Basophils 0.1 10^3/uL Normal 0-0.2 Abs Nucleated RBC 0.0 10^3/uL Granulocyte % 37.1 % Lymphocyte % 44.1 % Monocyte % 9.3 % Eosinophil % 8.5 % Basophil % 1.0 % Nucleated Red Blood Cells % 0.1 Comp Metabolic 05/21/2019 [facility] Sodium 141 mmol/L Normal 135-145 Panel [address] [place] [address] [phone] Potassium 4.1 mmol/L Normal 3.5-5.0 Chloride 105 mmol/L Normal 101-111 Co2 Carbon Dioxide 33 mmol/L High 22-32 Anion Gap 3 mmol/L Normal 2-11 Glucose 89 mg/dL Normal 70-100 Blood Urea Nitrogen 20 mg/dL Normal 6-24 Creatinine 0.55 mg/dL Normal 0.51-0.95 BUN/Creatinine Ratio 36.4 High 8-20 Calcium 9.7 mg/dL Normal 8.6-10.3 Total Protein 7.3 g/dL Normal 6.4-8.9 Albumin 4.3 g/dL Normal 3.2-5.2 Globulin 3.0 g/dL Normal 2-4 Albumin/Globulin Ratio 1.4 Normal 1-3 Total Bilirubin 0.40 mg/dL Normal 0.2-1.0 Alkaline Phosphatase 65 U/L Normal 34-104 Alt 22 U/L Normal 7-52 Ast 18 U/L Normal 13-39 Egfr Non- 115.2 >60 Egfr 139.4 >60 1 Iron & Iron Binding 05/21/2019 [facility] Iron 105 g/dL Normal 50-212 [address] [place] [address] [phone] Unsaturated Iron Binding < 278 g/dL Total Iron Binding Capacity 293 g/dL Normal 250-450 Transferrin 209 mg/dL Normal 203-362 % Iron Saturation 36 % Normal 15-55 Laboratory test 05/21/2019 [facility] Ferritin 70.2 ng/mL Normal 11-307 finding [address] [place] [address] [phone] Folate > 20.00 ng/mL >3.99 Vitamin B12 708 pg/mL Normal 180-914 2 Vitamin D Total 25(Oh) 29.5 ng/mL Normal 20-50 3 Vitamin E Level 13.7 mg/L 5.5 - 17.0 4 Vitamin B1 (Whole Blood) 144 nmol/L 70-180 5 1 Because ethnic data is not always [...] 5 Kidney failure <15 (or dialysis) 2 Normal Range 180 to 914 Indeterminate Range 145 to 180 Deficient Range <145 3 Total 25-Hydroxyvitamin D2 and D3 (25-OH-VitD) <10 ng/mL (severe deficiency) 10-19 ng/mL (mild to moderate deficiency) 20-50 ng/mL (optimum levels) 51-80 ng/mL (increased risk of hypercalciuria) >80 ng/mL (toxicity possible) 4 ADDITIONAL INFORMATION This test was developed and its performance characteristics determined by [facility] in a manner consistent with CLIA requirements. This test has not been cleared or approved by the U.S. Food and Drug Administration. Test Performed by: [facility] - [address] [address] 5 ADDITIONAL INFORMATION This test was developed and its performance characteristics determined by [facility] in a manner consistent with CLIA requirements. This test has not been cleared or approved by the U.S. Food and Drug Administration. Test Performed by: [facility] - [address] [address] Procedures Date Code Description Status 05/27/2019 82051 Inject/Drain Joint/Bursa Major W/O US Completed 04/11/2019 95908 Polysomnography Sleep Staging 4+ Parameters Completed 04/04/2018 79024976 Mammogram Completed Medical Devices Description No Information Available Encounters Type Date Location Provider Dx Diagnosis Office Visit 07/15/2019 Orthopedic Zaneb Yaseen, MD M75.31 [facility] 3:[facility] tendinitis of right shoulder S46.011A Strain of musc/tend the rotator cuff of right shoulder, init Office Visit 05/27/2019 2:00p Orthopedic Francheska Turk.32 [facility] 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 right shoulder Office Visit 03/11/2019 3:00p Orth[facility] Francheska Turk.31 [facility] right shoulder Assessments Date Code Description Provider 08/14/2019 M75.31 Calcific tendinitis of right Chun Odonnell MD shoulder 08/14/2019 M75.32 Calcific tendinitis of left Chun Odonnell MD shoulder 08/14/2019 S46.011A Strain of muscle(s) and tendon(s) Chun Odonnell MD of the rotator cuff of rig 07/15/2019 M75.31 Calcific tendinitis of right Chun Odonnell MD shoulder 07/15/2019 S46.011A Strain of muscle(s) and tendon(s) Chun Odonnell MD of the rotator cuff of right shoulder, initial encounter 05/27/2019 M75.32 Calcific tendinitis of left Chun Odonnell MD shoulder 05/27/2019 M75.31 Calcific tendinitis of right Chun Odonnell MD shoulder 05/27/2019 S46.011A Strain of muscle(s) and tendon(s) Chun Odonnell MD of the rotator cuff of rig 05/07/2019 G47.33 Obstructive sleep apnea (adult) Bita Stevens DNP, RN, (pediatric) [facility] 05/07/2019 Z68.22 Body mass index (BMI) 22.0-22.9, Bita Stevens DNP, RN, adult [facility] 04/29/2019 M75.31 Calcific tendinitis of right Chun Odonnell MD shoulder 04/11/2019 G47.33 Obstructive sleep apnea (adult) Michaela Carranza MD (pediatric) 03/11/2019 M75.31 Calcific tendinitis of right Chun Odonnell MD shoulder Plan of Treatment Future Appointment(s):09/30/2019 10:45 am - Chun Odonnell MD at [facility].08/14/2019 - Chun Odonnell, MDM75.31 Calcific tendinitis of right shoulderFollow up:3 caextmD54.32 Calcific tendinitis of left jduidyutG55.011A Strain of muscle(s) and tendon(s) of the rotator cuff of rig Functional Status Description No Information Available Mental Status Description No Information Available Referrals Description No Information Available
== END 2019-10-05 09:43 | disposition home or self-care (01) ==
LOC: ED 08:10
DX: J32.9 Chronic sinusitis, unspecified (principal); E11.9 Type 2 diabetes mellitus without complications; K21.9 Gastro-esophageal reflux disease without esophagitis; Z98.84 Bariatric surgery status
CPT/HCPCS: 71046; 99282

== ENCOUNTER → 2019-11-17 10:19 | Day surgery (SDC) | payer BC, OTHER ==
[~2019-11-17 10:19] MED LIST changes: +Acetaminophen TAB* 325 MG PO PRN; -Buffered Lidocaine 0.9% SYRIN* 5 ML/SYR SYRINGE INTRADERM ONE; +Buffered Lidocaine 1% SYRIN* 1 ML/SYRINGE INTRADERM ONE; +Dexamethasone IV* 4 MG/ML 1 ML (4 MG) ONE; +DiMENhydriNATE IV* 50 MG/ML VIAL ONE; +EPHEDrine (Pressors)* 50 MG/ML VIAL ONE; +Famotidine IV* 10 MG/ML 2 ML (20 mg) IV ONE; +Famotidine IV* 10 MG/ML 2 ML (20 mg) ONE; +Glycopyrrolate IV* 0.2 MG/ML 1 ML VIAL ONE; +Lactated Ringers 1000 ML Bag* 1,000 ML IV SCH; +Midazolam* 1 MG/ML 5 ML VIAL (5 MG) ONE; +Naloxone* 0.4 MG/ML 1 ML VIAL IV PRN; +Ondansetron INJ* 2 MG/ML VIAL ONE; +Propofol* 10 MG/ML 20 ML BTL ONE; +ROPIVACAINE 5 MG/ML 30 ML BTL (0.5%) ONE; -Sodium Citrate/Citric Acid* 15 ML UDC PO ONE; +ceFAZolin 2 GM PREMIX in ORs 2 GM/50 ML BAG ONE; +fentaNYL* 50 MCG/ML 2 ML VIAL (100 MCG VIAL) ONE; +oxyCODONE TAB* 5 MG TAB PO PRN
[2019-11-17 15:44] VITALS: BP 107/65
--- NOTE | 2019-11-17 23:52 | OP ---
CC: Dr. Jose Ayala* OPERATIVE REPORT: DATE OF OPERATION: 11/17/19 - [place] DATE OF : 63 SURGEON: Chun Odonnell MD COOK ENCHILADA: ROSEANN Cheatham An customer marketing assistant was needed for the entirety of the case to help with positioning, retraction, and was utilized throughout all portions of the case. ANESTHESIOLOGIST: Dr. Gonzalez. ANESTHESIA: General interscalene block. PRE-OP DIAGNOSIS: Right shoulder high-grade partial thickness tear of the rotator cuff and recurrent impingement. POST-OP DIAGNOSIS: Right shoulder high-grade partial thickness tear of the rotator cuff and recurrent impingement. OPERATIVE PROCEDURE: Right shoulder arthroscopy with: 1. Revision subacromial decompression. 2. Rotator cuff repair using Regeneten patch. COMPLICATIONS: None. ESTIMATED BLOOD LOSS: Minimal. IMPLANT: One Regeneten patch, size medium. INDICATIONS: Kristy Montez is a 54-year-old female who had a previous calcific tendonitis that was treated arthroscopically. She then had persistent pain and failed conservative management. She was diagnosed with partial- thickness tear of the rotator cuff. Decision was made to treat this with rotator cuff repair. After an extensive discussion of the risks and benefits of operative versus nonoperative treatment, she is elected to proceed with surgical treatment. Risks included, but not limited to, bleeding; infection; damage to nerves, vessels, surrounding structures; wound nonhealing; persistent pain; need for further surgery; scarring; stiffness; incomplete relief of symptoms; risks of anesthesia. DESCRIPTION OF PROCEDURE: The patient was greeted in the preoperative area by the attending surgeon. Correct extremity was marked. Consent was confirmed. The patient underwent interscalene nerve block by the anesthesiologist after which she was brought back to the operating suite, placed in supine position on the operating table, then underwent general anesthesia and endotracheal intubation, after which she was placed in the left lateral decubitus position. All bony prominences padded. She was secured with a pegboard. The right shoulder was then prepped and draped with chlorhexidine soap, scrub, and alcohol wipe and a final prep with ChloraPrep. After appropriate surgical pause indicating site, side, procedure, administration of antibiotics, the standard posterolateral portal was made sharply with an 11 blade. Scope was introduced into the joint. The joint was examined. On the undersurface of the rotator cuff, there was high-grade partial thickness tearing. The subscap was intact. The biceps anchor looks secure. There was little of synovitis, did not look that bad and could have been related to the rotator cuff. Decision was made to leave the biceps. Once the visualization intraarticularly was complete, attention was directed to the subacromial space. With the scope positioned in the subacromial space, lateral portal was made in outside fashion. Shaver was used to debride back the recurrent bursa that was present. The undersurface of the acromion was skeletonized. Again, there was a small remnant of the spur, which was debrided back using 4-0 oval helena. The cuff tissue was probed and there was some obvious partial tearing. The decision was made to treat this with a Regeneten patch. A size medium Regeneten patch brought to the field and then through a separate stab incision, this was secured medially with tendon zenon, laterally with PEEK zenon. This was well secured and approximated the area where there was partial thickness tearing where they had been the previous debridement of the calcific tendon. The shoulder was taken through gentle range of motion. Final images were obtained. The wound was copiously irrigated with sterile saline. The portals were closed with 3-0 nylon. Sterile dressings were applied. A Cryo /Cuff and a regular sling were applied. She was awoken from anesthesia and transferred to PACU in stable condition. POSTOPERATIVE PLAN: She will be nonweightbearing. She will be in the sling for about 2 to 3 days. Discharged on pain medication. DVT prophylaxis was considered, but deferred due to no pervious personal or family history. I will place her on antibiotics for revision surgery. [id number]/[facility] #: [id number] LORENZO
== END | disposition home or self-care (01) ==
LOC: OREAST 10:19
PROVIDERS: ATTEND Orthopaedic Surgery
DX: S46.011D Strain of muscle(s) and tendon(s) of the rotator cuff of right shoulder, subsequent encounter (principal); M75.31 Calcific tendinitis of right shoulder; M75.41 Impingement syndrome of right shoulder; X58.XXXD Exposure to other specified factors, subsequent encounter; Y92.9 Unspecified place or not applicable; G89.18 Other acute postprocedural pain; E11.9 Type 2 diabetes mellitus without complications
CPT/HCPCS: C1713; J0690; J1100; J1240; J2250; J2405; J2704; J2795; J3010